=== PATIENT | male | born 1955 | race Caucasian/White ===

== ENCOUNTER 2022-08-20 11:43 | Emergency (ER) | payer OTHER ==
[~2022-08-20] VITALS: Ht 195.5 cm; Wt 136.1 kg
[~2022-08-20 11:43] MED LIST: VICODIN ES 7501 TAB PO
[2022-08-21] MEDS ORDERED: METOPROLOL SUCC25 M2 PO (12:22)
[2022-08-21] MEDS ORDERED: BUSPAR5 MG PO (12:23)
[2022-08-21] MEDS ORDERED: MELOXICAM15 MG PO (12:23)
[2022-08-21] MEDS ORDERED: TRAZODONE50 MG PO (12:23)
[2022-08-21] MEDS ORDERED: ZOLOFT25 MG PO (12:24)
[2022-08-21] MEDS ORDERED: CYCLOBENZAPRINE10 MG PO (12:25)
[2022-08-21] MEDS ORDERED: ASPIRIN ADULT L81 M1 PO (12:25)
== END 2022-08-20 15:35 | disposition home or self-care (01) ==
LOC: ED 11:43
DX: I82.401 Acute embolism and thrombosis of unspecified deep veins of right lower extremity (principal); Z90.89 Acquired absence of other organs; F17.200 Nicotine dependence, unspecified, uncomplicated

== ENCOUNTER 2022-08-21 09:07 | Emergency (ER) | payer OTHER ==
[~2022-08-21] VITALS: Ht 195.5 cm; Wt 136.1 kg
[2022-08-21 09:52] LABS: BASO % 0.4 % (0.0-1.0); EOS # 0.1 10*3/uL (0.0-0.4); EOS % 1.5 % (1.0-4.0); HEMATOCRIT 48.6 % (42.0-52.0); LYMPH # 1.1 10*3/uL (1.3-4.4); LYMPH % 15.8 % (27.0-41.0); MEAN CELL VOLUME 82.7 fl (80.0-94.0); MEAN CORPUSCULAR HGB 28.1 pg (27.0-31.0); MEAN PLATELET VOLUME 9.9 fl (9.6-12.3); MONO # 1.1 10*3/uL (0.1-1.0); MONO % 14.8 % (3.0-9.0); NEUT # 4.8 10*3/uL (2.3-7.9); NEUT % 66.9 % (47.0-73.0); PLATELET COUNT AUTOMATED 197 10*3/uL (130-400); RED BLOOD COUNT 5.88 10*6/uL (4.50-5.90); RED CELL DISTRI WIDTH 14.4 % (0-14.5); WHITE BLOOD COUNT 7.2 10*3/uL (4.8-10.8)
[2022-08-21 10:11] LABS: ALKALINE PHOSPHATASE 109 U/L (45-117); BUN 17 mg/dl (7-24); CHLORIDE 104 mmol/L (98-107); CREATININE 0.99 mg/dL (0.70-1.30); POTASSIUM 4.1 mmol/L (3.5-5.1); SGOT/AST 33 IU/L (3-35); SODIUM 136 mmol/L (136-145); TOTAL PROTEIN 8.4 gm/dL (6.4-8.2)
[2022-08-21 10:17] LABS: SGPT/ALT 52 U/L (12-78)
[2022-08-21] MEDS ORDERED: METOPROLOL SUCC25 M2 PO (12:22)
[2022-08-21] MEDS ORDERED: TRAZODONE50 MG PO (12:23)
[2022-08-21] MEDS ORDERED: BUSPAR5 MG PO (12:23)
[2022-08-21] MEDS ORDERED: MELOXICAM15 MG PO (12:23)
[2022-08-21] MEDS ORDERED: ZOLOFT25 MG PO (12:24)
[2022-08-21] MEDS ORDERED: ASPIRIN ADULT L81 M1 PO (12:25)
[2022-08-21] MEDS ORDERED: CYCLOBENZAPRINE10 MG PO (12:25)
[2022-08-21 14:38] LABS: INTERNATIONAL NORM RATIO 1.1 (2.0-3.5)
== END 2022-08-21 21:10 | disposition short-term general hospital (02) ==
LOC: ED 09:07
PROVIDERS: Family Medicine
DX: I26.99 Other pulmonary embolism without acute cor pulmonale (principal); Z20.822 Contact with and (suspected) exposure to COVID-19; Z79.899 Other long term (current) drug therapy; Z79.82 Long term (current) use of aspirin; Z90.89 Acquired absence of other organs